=== PATIENT | male | born 1970 | race Caucasian/White ===

== ENCOUNTER 2017-07-28 11:42 | Day surgery (SDC) | payer BC ==
[~2017-07-28] VITALS: Ht 182.9 cm; Wt 83.9 kg
[2017-07-28] MEDS ORDERED: PHENYLEPHRINE 0.5% NASAL SPR (NEO-SYNEPHRINE) REG ONE ×2 (11:46→12:15)
[2017-07-28] MEDS ORDERED: LIDOCAINE/EPI 1%-1:200,000 (XYLOCAINE) 10 ML VIAL ONE (11:46)
[2017-07-28] MEDS ORDERED: MUPIROCIN 2% OINT 22 GM (BACTROBAN) TUBE ONE (11:46)
[2017-07-28] MEDS: LACTATED RINGERS 1,000 ML IV SCH ×2 (11:55→12:29)
--- NOTE | 2017-07-28 11:56 | Progress Note-Pre Operative ---
Pre-Operative Progress Note H&P Reviewed The H&P was reviewed, patient examined and no changes noted. Date Seen by Provider: Jul 28, 2017 Time Seen by Provider: 11:30 Date H&P Reviewed: Jul 28, 2017 Time H&P Reviewed: :30 Pre-Operative Diagnosis: Right Posterior Epistaxis KENNEDI MERCHANT MD Jul 28, 2017 11:56 am
[2017-07-28 12:00] VITALS: BP 143/94
[2017-07-28] MEDS ORDERED: LIDOCAINE/EPI 1%-1:200,000 (XYLOCAINE) 10 ML VIAL INJ ONE (12:00)
[2017-07-28] MEDS ORDERED: fentaNYL INJECTION 100 MCG/2 ML AMP ONE (12:01)
[2017-07-28] MEDS ORDERED: MIDAZOLAM 2 MG/2 ML (VERSED) VIAL ONE (12:02)
[2017-07-28] MEDS ORDERED: ceFAZolin 1,000 MG (ANCEF) VIAL ONE (12:15)
[2017-07-28] MEDS ORDERED: DIPH25CA79 PO (12:21)
[2017-07-28] MEDS ORDERED: NF-SILD25T PO (12:21)
[2017-07-28] MEDS ORDERED: IBUP-30 PO (12:21)
[2017-07-28] MEDS ORDERED: ceFAZolin 1,000 MG (ANCEF) VIAL IV ONE (12:30)
[2017-07-28] MEDS ORDERED: D5 1/2 NS W/KCL 20 MEQ/L 1,000 ML IV SCH (12:46)
--- NOTE | 2017-07-28 12:46 | Progress Note-Post Operative ---
Post-Operative Progess Note Surgeon (s)/Cadd Instructor (s) Surgeon KENNEDI MERCHANT MD Cadd Instructor n/a Pre-Operative Diagnosis Right Posterior Epistaxis Post-Operative Diagnosis same Post-Op Procedure Note Date of Procedure: Jul 28, 2017 Name of Procedure Performed: Endoscopic Repair of Right Posterior Epistaxis Description & Findings Description and Findings: n/a Anesthesia Type get Estimated Blood Loss minimal Packing none. Specimen(s) collected/removed none KENNEDI MERCHANT MD Jul 28, 2017 12:46 pm
[2017-07-28] MEDS ORDERED: ONDANSETRON 4 MG/2 ML (SDV) Z0FRAN ONE (12:47)
[2017-07-28] MEDS ORDERED: SEVOFLURANE (ULTANE) 15 ML INHAL SOLN ONE (12:47)
[2017-07-28] MEDS ORDERED: ACETAMINOPHEN 500 MG TAB (TYLENOL) PO PRN (13:00)
[2017-07-28] MEDS ORDERED: PHENYLEPHRINE 0.5% NASAL SPR (NEO-SYNEPHRINE) REG PRN (13:00)
[2017-07-28] MEDS ORDERED: HYDROcodone/APAP 5 MG/325 MG (LORTAB) TAB PO PRN (13:00)
[2017-07-28] MEDS ORDERED: proPOfol 200 MG/20 ML (DIPRIVAN) VIAL IV ONE (13:04)
[2017-07-28] MEDS ORDERED: LIDOCAINE PF 2% 5 ML (XYLOCAINE) VIAL ONE (13:04)
[2017-07-28] MEDS ORDERED: LIDOCAINE JELLY 2% (XYLOCAINE) 5 ML TUBE ONE (13:04)
[2017-07-28] MEDS ORDERED: CEPH-507 PO (13:07)
[2017-07-28] MEDS ORDERED: SODI104S3 NS (13:07)
[2017-07-28] MEDS ORDERED: HYDR-3812 PO (13:07)
[2017-07-28] MEDS ORDERED: ONDANSETRON 4 MG/2 ML (SDV) Z0FRAN IVP PRN (13:15)
[2017-07-28] MEDS ORDERED: MEPERIDINE (DEMEROL) INJ 50 MG/ML IVP PRN (13:15)
[2017-07-28] MEDS ORDERED: morphine INJ 10 MG/ML 1ML (SYR OR VIAL) IVP PRN (13:15)
[2017-07-28 13:55] VITALS: BP 151/101
[2017-07-28 14:25] VITALS: BP 155/104
[2017-07-28] MEDS ORDERED: HYDROcodone/APAP 5 MG/325 MG (LORTAB) TAB ONE (14:26)
[2017-07-28 14:55] VITALS: BP 155/104
[2017-07-28] MEDS ORDERED: LABETALOL HCL 20 MG/4 ML VIAL IV PRN (15:30)
[2017-07-28 15:40] VITALS: BP 145/99
[2017-07-28 15:45] VITALS: BP 145/99
[2017-07-28] MEDS ORDERED: MUPIROCIN 2% OINT 22 GM (BACTROBAN) TUBE TOP SCH (21:00)
== END 2017-07-28 15:45 | disposition home or self-care (01) ==
LOC: SDC 11:42
PROVIDERS: ATTEND Otolaryngology Otolaryngology/Facial Plastic Surgery
DX: R04.0 Epistaxis (principal); I10 Essential (primary) hypertension; F10.10 Alcohol abuse, uncomplicated; R74.8 Abnormal levels of other serum enzymes; Z79.899 Other long term (current) drug therapy